=== PATIENT | female | born 1975 | race Caucasian/White ===

== ENCOUNTER 2019-01-14 13:48 | Emergency (ER) | payer BC ==
[2019-01-14] MEDS ORDERED: Sodium Chloride 0.9% 1,000 ML IV ONE (13:52)
--- NOTE | 2019-01-14 14:04 | EDM.PDOC ---
ED HPI GENERAL MEDICAL PROBLEM - General Chief Complaint: Gastrointestinal Problem Stated Complaint: SENT IN BY DR CARPENTER--BLOOD IN STOOL Time Seen by Provider: 01/14/19 13:54 - History of Present Illness INITIAL COMMENTS - FREE TEXT/NARRATIVE: HISTORY AND PHYSICAL: History of present illness: Patient is a 43-year-old white female with history of prior ileitis was on Humira for rheumatoid arthritis who has had colonoscopy looking for evidence of Crohn's disease that was indeterminant who presents now with diarrhea and bloody stools 2 days there is been no fever chills trauma or other concern she denies nausea or vomiting she was recently on Augmentin for an otitis media. She states she has had some right-sided abdominal pain it was similar to the prior episode of ileitis Review of systems: As per history of present illness and below otherwise all systems reviewed and negative. Past medical history: As per history of present illness and as reviewed below otherwise noncontributory. Surgical history: As per history of present illness and as reviewed below otherwise noncontributory. Social history: No reported history of drug or alcohol abuse. Family history: As per history of present illness and as reviewed below otherwise noncontributory. Physical exam: HEENT: Atraumatic, normocephalic, pupils reactive, negative for conjunctival pallor or scleral icterus, mucous membranes moist, throat clear, neck supple, nontender, trachea midline. Lungs: Clear to auscultation, breath sounds equal bilaterally, chest nontender. Heart: S1S2, regular, negative for clicks, rubs, or JVD. Abdomen: Soft, nondistended, nontender. Negative for masses or hepatosplenomegaly. Negative for costovertebral tenderness. Pelvis: Stable nontender. Genitourinary: Deferred. Rectal: Deferred. Extremities: Atraumatic, negative for cords or calf pain. Neurovascular unremarkable. Neuro: Awake, alert, oriented. Cranial nerves II through XII unremarkable. Cerebellum unremarkable. Motor and sensory unremarkable throughout. Exam nonfocal. Diagnostics: CBC CMP PT/INR CT abdomen and pelvis Therapeutics: Saline 1 L bolus Impression: #1 bloody diarrhea #2 history of rheumatoid arthritis #3 history of ileitis Definitive disposition and diagnosis as appropriate pending reevaluation and review of above. - Related Data Allergies Allergy/AdvReac Type Severity Reaction Status Date / Time No Known Allergies Allergy Verified 01/14/19 14:00 Home Meds: Home Meds Adalimumab [Humira] 1 dose IM ASDIRECTED 08/08/18 [History] Fexofenadine [Elva] 30 mg PO DAILY 08/08/18 [History] Loratadine [Claritin] 10 mg PO ASDIRECTED 08/08/18 [History] Multivitamin [Multivitamins] 1 tab PO DAILY 08/08/18 [History] Ranitidine [Zantac] 1 tab PO ASDIRECTED 08/08/18 [History] Spironolactone [Aldactone] 100 mg PO DAILY 08/08/18 [History] Past Medical History HEENT History: Reports: Allergic Rhinitis Cardiovascular History: Reports: None Respiratory History: Reports: None Gastrointestinal History: Reports: None Genitourinary History: Reports: None FLAME [employer]NE[employer]ING M[employer]INE [employer]TER History: Reports: Musculoskeletal History: Reports: Other (See Below) Other Musculoskeletal History: Scoritic arthritits, broken neck (2009) Neurological History: Reports: None Psychiatric History: Reports: None Endocrine/Metabolic History: Reports: None Hematologic History: Reports: None Immunologic History: Reports: None Oncologic (Cancer) History: Reports: Cervix Dermatologic History: Reports: None - Infectious Disease History Infectious Disease History: Reports: Chicken Pox - Past Surgical History Head Surgeries/Procedures: Reports: None HEENT Surgical History: Reports: None Cardiovascular Surgical History: Reports: None Respiratory Surgical History: Reports: None GI Surgical History: Reports: None Female Surgical History: Reports: Other (See Below) Other Female Surgeries/Procedures: Cancer cells removed from cervix Endocrine Surgical History: Reports: None Neurological Surgical History: Reports: None Musculoskeletal Surgical History: Reports: None Oncologic Surgical History: Reports: None Dermatological Surgical History: Reports: None Social & Family History - Family History Family Medical History: Noncontributory - Caffeine Use Caffeine Use: Reports: Coffee, Soda ED ROS GENERAL - Review of Systems Review Of Systems: ROS reveals no pertinent complaints other than HPI. ED EXAM, GENERAL - Physical Exam Exam: See Below (See dictation) Course - Vital Signs Last Recorded V/S: Last Vital Signs Temp 35.7 C 01/14/19 15:45 Pulse 84 01/14/19 15:45 Resp 18 01/14/19 13:57 BP 149/98 H 01/14/19 15:45 Pulse Ox 97 01/14/19 15:45 - Orders/Labs/Meds Orders: Active Orders 24 hr Category Date Time Status EKG Documentation Completion [RC] STAT Care 01/14/19 13:50 Active CDIFF TOX A+B [OP] Stat Lab 01/14/19 14:06 Ordered CULTURE STOOL + CAMPY+SHIGATOX [RM] Stat Lab 01/14/19 14:06 Ordered OVA & PARASITES BY IMMUNOASSAY [MREF] Stat Lab 01/14/19 14:06 Ordered WBC, STOOL [OP] Stat Lab 01/14/19 14:06 Ordered Isolation [COMM] Stat Oth 01/14/19 14:06 Ordered Labs: Laboratory Tests 01/14/19 01/14/19 01/14/19 Range/Units 14:39 14:39 14:39 WBC 9.77 (4.0-11.0) K/uL RBC 5.40 (4.30-5.90) M/uL Hgb 16.2 H (12.0-16.0) g/dL Hct 47.9 H (36.0-46.0) % MCV 88.7 (80.0-98.0) fL MCH 30.0 (27.0-32.0) pg MCHC 33.8 (31.0-37.0) g/dL RDW Std Deviation 43.8 (28.0-62.0) fl RDW Coeff of Mary 14 (11.0-15.0) % Plt Count 265 (150-400) K/uL MPV 8.60 (7.40-12.00) fL Neut % (Auto) 46.1 L (48.0-80.0) % Lymph % (Auto) 40.1 H (16.0-40.0) % [place] % (Auto) 4.1 (0.0-15.0) % Eos % (Auto) 9.5 H (0.0-7.0) % Baso % (Auto) 0.2 (0.0-1.5) % Neut # (Auto) 4.5 (1.4-5.7) K/uL Lymph # (Auto) 3.9 H (0.6-2.4) K/uL [place] # (Auto) 0.4 (0.0-0.8) K/uL Eos # (Auto) 0.9 H (0.0-0.7) K/uL Baso # (Auto) 0.0 (0.0-0.1) K/uL Nucleated RBC % 0.0 /100WBC Nucleated RBCs # 0 K/uL INR 0.96 Sodium 142 (136-145) mmol/L Potassium 3.9 (3.5-5.1) mmol/L Chloride 105 (98-107) mmol/L Carbon Dioxide 25.0 (21.0-32.0) mmol/L BUN 11 (7.0-18.0) mg/dL Creatinine 0.8 (0.6-1.0) mg/dL Est Cr Clr Drug Dosing 79.91 mL/min Estimated GFR (MDRD) > 60.0 ml/min Glucose 89 (74-106) mg/dL Calcium 9.4 (8.5-10.1) mg/dL Total Bilirubin 0.4 (0.2-1.0) mg/dL AST 23 (15-37) IU/L ALT 47 (14-63) IU/L Alkaline Phosphatase 84 (46-116) U/L Total Protein 7.9 (6.4-8.2) g/dL Albumin 4.1 (3.4-5.0) g/dL Globulin 3.8 (2.6-4.0) g/dL Albumin/Globulin Ratio 1.1 (0.9-1.6) Meds: Medications Discontinued Medications Generic Name Dose Route Start Last Admin Trade Name Freq PRN Reason Stop Dose Admin Sodium Chloride 1,000 mls @ 999 mls/hr 01/14/19 13:52 01/14/19 14:41 Normal Saline IV 01/14/19 14:52 999 mls/hr STAT ONE Administration Departure - Departure Time of Disposition: 16:40 Disposition: Home, Self-Care 01 Condition: Good Clinical Impression: GI bleed Abdominal pain Qualifiers: Abdominal location: lower abdomen, unspecified Qualified Code(s): R10.30 - Lower abdominal pain, unspecified - Discharge Information Referrals: Brandon Carpenter MD [Primary Care Provider] - Forms: ED Department Discharge Additional Instructions: The following information is given to patients seen in the emergency department who are being discharged to home. This information is to outline your options for follow-up care. We provide all patients seen in our emergency department with a follow-up referral. The need for follow-up, as well as the timing and circumstances, are variable depending upon the specifics of your emergency department visit. If you don't have a primary care physician on staff, we will provide you with a referral. We always advise you to contact your personal physician following an emergency department visit to inform them of the circumstance of the visit and for follow-up with them and/or the need for any referrals to a consulting specialist. The emergency department will also refer you to a specialist when appropriate. This referral assures that you have the opportunity for followup care with a specialist. All of these measure are taken in an effort to provide you with optimal care, which includes your followup. Under all circumstances we always encourage you to contact your private physician who remains a resource for coordinating your care. When calling for followup care, please make the office aware that this follow-up is from your recent emergency room visit. If for any reason you are refused follow-up, please contact the [facility] emergency department at and asked to speak to the emergency department charge nurse. Follow-up primary medical doctor as discussed follow-up gastroenterology as discussed avoid dairy 72 hours bring stool in as directed for appropriate studies and return as needed as discussed - My Orders Last 24 Hours: My Active Orders 01/14/19 13:50 EKG Documentation Completion [RC] STAT 01/14/19 14:06 CDIFF TOX A+B [OP] Stat CULTURE STOOL + CAMPY+SHIGATOX [RM] Stat OVA & PARASITES BY IMMUNOASSAY [MREF] Stat WBC, STOOL [OP] Stat Isolation [COMM] Stat - Assessment/Plan Last 24 Hours: My Active Orders 01/14/19 13:50 EKG Documentation Completion [RC] STAT 01/14/19 14:06 CDIFF TOX A+B [OP] Stat CULTURE STOOL + CAMPY+SHIGATOX [RM] Stat OVA & PARASITES BY IMMUNOASSAY [MREF] Stat WBC, STOOL [OP] Stat Isolation [COMM] Stat
[2019-01-14 15:30] LABS: CHLORIDE,CL 105 mmol/L (98-107); SODIUM,NA 142 mmol/L (136-145)
--- NOTE | 2019-01-14 15:50 | CT ---
CT of the abdomen and pelvis without contrast. HISTORY: Pain TECHNIQUE: Axial CT images were obtained of the abdomen and pelvis without contrast. Coronal and sagittal reconstructions obtained. FINDINGS: The lung bases are clear, no pleural effusion. Calcified granulomata within the right lung base. There are a few splenic and hepatic granulomata. Otherwise the liver, spleen, adrenal glands, and pancreas appear unremarkable for noncontrast examination. The gallbladder appears normal. There is no bulky retroperitoneal lymphadenopathy. No abdominal ascites. There are no calcifications noted within the kidneys or along the courses of the ureters bilaterally. The large and small bowel are normal in caliber without evidence of obstruction. The appendix appears normal. There is no bulky pelvic lymphadenopathy. No free fluid. No free air. The urinary bladder appears normal. Tiny left ovarian cyst. Sclerotic changes noted at the SI joints bilaterally. IMPRESSION: 1. No acute findings within the abdomen or pelvis. 2. Mild bilateral sacroiliitis.
== END 2019-01-14 16:50 | disposition home or self-care (01) ==
LOC: MW.ED 13:48
DX: K92.2 Gastrointestinal hemorrhage, unspecified (principal); Z79.899 Other long term (current) drug therapy
CPT/HCPCS: 74176; 80053; 83630; 85025; 85610; 87046; 87324; 87328; 87329; 93005; 96360; 99285; J7040; 87899